=== PATIENT | male | born 1970 | race American Indian/Alaskan Native ===

== ENCOUNTER 2020-04-16 09:46 | Outpatient (CLI) | payer OTHER ==
--- NOTE | 2020-04-16 11:13 | XRay Report ---
BILATERAL KNEES 2 VIEWS INDICATION: Bilateral knee pain. COMPARISON: None. IMPRESSION: There is normal bone mineralization. Moderate osteoarthritic changes are identified in t he medial compartment and patellofemoral space of the right knee. Mild osteoarthritic changes are chano ntified in the medial compartment and patellofemoral space of the left knee. No acute osseous or sof t tissue abnormality is appreciated. A small osteochondroma projects from the medial surface of the p roximal metaphysis of the left femur measuring 7 x 8 mm. Small bilateral joint effusions are suspecte d. BILATERAL SHOULDERS 3 VIEWS INDICATION: Bilateral shoulder pain. COMPARISON: None. IMPRESSION: No acute osseous or soft tissue abnormality. Mild symmetric osteoarthritic changes ar e identified at the glenohumeral joints and AC joints. LUMBOSACRAL SPINE 3 VIEWS INDICATION: BACK PAIN. COMPARISON: None. IMPRESSION: Normal alignment. Moderate disc space narrowing and moderate spurring is identified at L4-5. The remaining levels demonstrate minimal degenerative changes. There is mild diffuse facet arth ropathy. No acute osseous or soft tissue abnormality. Signer Name: Aditya Contreras Jr, MD Signed: 04/16/2020 11:08 AM Workstation Name: [id number]
== END 2020-04-16 09:47 | disposition home or self-care (01) ==
LOC: XRAY 09:46
PROVIDERS: ATTEND Internal Medicine
DX: M17.0 Bilateral primary osteoarthritis of knee (principal); M19.012 Primary osteoarthritis, left shoulder; M19.011 Primary osteoarthritis, right shoulder; M47.816 Spondylosis without myelopathy or radiculopathy, lumbar region; M48.061 Spinal stenosis, lumbar region without neurogenic claudication; M25.78 Osteophyte, vertebrae
CPT/HCPCS: 72100